=== PATIENT | male | born 1945 | race Caucasian/White ===

== ENCOUNTER 2019-12-12 10:31 | Observation (INO) | payer MEDICARE, BC ==
[~2019-12-12] VITALS: Ht 175.3 cm; Wt 70.3 kg
[2019-12-12] MEDS ORDERED: LACTATED RINGERS 1,000 ML IV SCH (11:34)
[2019-12-12] MEDS ORDERED: CHLORHEXIDINE 15 ML UDC MM STA (11:34)
[2019-12-12] MEDS ORDERED: CHLORHEXIDINE 15 ML UDC ONE (11:36)
[2019-12-12] MEDS ORDERED: SERT25TA3 PO (11:59)
[2019-12-12] MEDS ORDERED: OMEP-110 PO (11:59)
[2019-12-12] MEDS ORDERED: MAGN400T9 PO (11:59)
[2019-12-12] MEDS ORDERED: CHOL10003 PO (11:59)
[2019-12-12] MEDS ORDERED: ALBU6.7H8 IH (11:59)
[2019-12-12] MEDS ORDERED: ASCO-90 PO (11:59)
[2019-12-12] MEDS ORDERED: GLIM2TAB PO (11:59)
[2019-12-12] MEDS ORDERED: METF500T17 PO (11:59)
[2019-12-12] MEDS ORDERED: AMLO-150 PO (11:59)
[2019-12-12] MEDS ORDERED: HYDR50TA99 PO (11:59)
[2019-12-12] MEDS ORDERED: DIVA250T4 PO (11:59)
[2019-12-12] MEDS ORDERED: APIX5TAB PO (11:59)
[2019-12-12] MEDS ORDERED: LEVO750T6 PO (11:59)
[2019-12-12] MEDS ORDERED: ACET-2065 PO (11:59)
[2019-12-12] MEDS ORDERED: ROSU40TA PO (11:59)
[2019-12-12] MEDS ORDERED: TAMS-11 PO (11:59)
[2019-12-12] MEDS ORDERED: BISA10SU54 PR (11:59)
[2019-12-12] MEDS ORDERED: FERR324T5 PO (11:59)
[2019-12-12] MEDS ORDERED: FENTANYL PF 100 MCG/2ML ONE (12:16)
[2019-12-12] MEDS ORDERED: LIDOCAINE PF 2%, 5ML ONE (12:16)
[2019-12-12] MEDS ORDERED: DEXAMETHASONE 4 MG/ML, 1ML ONE (12:54)
[2019-12-12] MEDS ORDERED: PROPOFOL 10 MG/ML, 20ML ONE (12:54)
[2019-12-12] MEDS ORDERED: CEFAZOLIN 1,000 MG ONE (12:54)
[2019-12-12] MEDS ORDERED: ONDANSETRON 2MG/ML, 2ML ONE (12:54)
[2019-12-12] MEDS ORDERED: PROMETHAZINE 25 MG SUPP PR PRN (13:00)
[2019-12-12] MEDS ORDERED: OXYcodone 5 MG/5 ML ORAL.SOL UDC PO PRN (13:00)
[2019-12-12] MEDS ORDERED: PROMETHAZINE 25 MG/ML, 1ML IVPush PRN (13:00)
[2019-12-12] MEDS ORDERED: FENTANYL PF 100 MCG/2ML IV PRN (13:00)
[2019-12-12] MEDS ORDERED: ACETAMINOPHEN 325 MG TABLET PO PRN ×2 (13:00→14:30)
[2019-12-12] MEDS ORDERED: ONDANSETRON 2MG/ML, 2ML IVPush PRN (13:00)
[2019-12-12] MEDS ORDERED: HYDROmorphone 1 MG/ML, 1ML INJ IVPush PRN (13:00)
[2019-12-12] MEDS ORDERED: HYDROcodone/APAP 5/325 TABLET PO PRN (13:00)
[2019-12-12] MEDS ORDERED: hydrOXyzine 50MG TABLET PO PRN (15:00)
[2019-12-12] MEDS ORDERED: metFORMIN 500 MG TABLET PO SCH (17:00)
[2019-12-12] MEDS: metFORMIN 500 MG TABLET PO SCH (17:17)
[2019-12-12 18:20] VITALS: BP 113/71
[2019-12-12] MEDS: FERROUS SULFATE 325 MG TABLET PO SCH (20:45)
[2019-12-12] MEDS: ATORVASTATIN 80 MG TABLET PO SCH (20:45)
[2019-12-12] MEDS: DIVALPROEX 250 MG TAB.ER.24H PO SCH (20:45)
[2019-12-12] MEDS: ALBUTEROL HFA 90 MCG/SPRAY INH SCH (22:00)
[2019-12-12 23:10] VITALS: BP 123/59
[2019-12-13] MEDS: ALBUTEROL HFA 90 MCG/SPRAY INH SCH ×4 (02:56→20:10)
[2019-12-13 03:30] VITALS: BP 117/71
[2019-12-13] MEDS: OMEPRAZOLE 20 MG CAPSULE.DR PO SCH (05:05)
[2019-12-13 07:55] VITALS: BP 130/72
[2019-12-13] MEDS ORDERED: metFORMIN 500 MG TABLET PO SCH (08:00)
[2019-12-13] MEDS: BISACODYL 10 MG SUPP PR SCH (08:49)
[2019-12-13] MEDS: MAGNESIUM OXIDE 400 MG TABLET PO SCH (09:00)
[2019-12-13] MEDS: FERROUS SULFATE 325 MG TABLET PO SCH ×2 (09:00→21:16)
[2019-12-13] MEDS: CHOLECALCIFEROL 1,000 UNIT TABLET PO SCH (09:00)
[2019-12-13] MEDS: ASCORBIC ACID 500 MG TABLET PO SCH (09:00)
[2019-12-13] MEDS ORDERED: ONDANSETRON 2MG/ML, 2ML ONE (09:07)
[2019-12-13] MEDS: SERTRALINE 50MG TABLET PO SCH (09:10)
[2019-12-13] MEDS: AMLODIPINE 10 MG TAB PO SCH (09:10)
[2019-12-13] MEDS: LEVOFLOXACIN 750 MG TABLET PO SCH (09:11)
[2019-12-13] MEDS: metFORMIN 500 MG TABLET PO SCH ×2 (09:11→17:34)
[2019-12-13] MEDS: TAMSULOSIN 0.4 MG CAP.ER.24H PO SCH (09:11)
[2019-12-13] MEDS: GLIMEPIRIDE 1 MG TABLET PO SCH (09:11)
[2019-12-13] MEDS ORDERED: ONDANSETRON 2MG/ML, 2ML IVPush PRN (09:30)
[2019-12-13] MEDS ORDERED: PROMETHAZINE 25 MG/ML, 1ML ONE (11:22)
[2019-12-13] MEDS ORDERED: PROMETHAZINE 25 MG/ML, 1ML IM PRN (11:30)
[2019-12-13 13:51] VITALS: BP 110/68
[2019-12-13 18:28] VITALS: BP 116/65
[2019-12-13] MEDS: ATORVASTATIN 80 MG TABLET PO SCH (21:15)
[2019-12-13] MEDS: APIXABAN 5 MG TABLET PO SCH (21:15)
[2019-12-13] MEDS: DIVALPROEX 250 MG TAB.ER.24H PO SCH (21:16)
[2019-12-14 00:38] VITALS: BP 130/70
[2019-12-14] MEDS: ALBUTEROL HFA 90 MCG/SPRAY INH SCH (03:00)
[2019-12-14 05:23] LABS: CREATININE 0.78 mg/dL (0.7-1.3)
[2019-12-14] MEDS: OMEPRAZOLE 20 MG CAPSULE.DR PO SCH (06:41)
[2019-12-14 07:26] VITALS: BP 134/76
[2019-12-14] MEDS: GLIMEPIRIDE 1 MG TABLET PO SCH (08:01)
[2019-12-14] MEDS: FERROUS SULFATE 325 MG TABLET PO SCH (08:01)
[2019-12-14] MEDS: LEVOFLOXACIN 750 MG TABLET PO SCH (08:01)
[2019-12-14] MEDS: CHOLECALCIFEROL 1,000 UNIT TABLET PO SCH (08:01)
[2019-12-14] MEDS: metFORMIN 500 MG TABLET PO SCH (08:02)
[2019-12-14] MEDS: BISACODYL 10 MG SUPP PR SCH (08:02)
[2019-12-14] MEDS: AMLODIPINE 10 MG TAB PO SCH (08:02)
[2019-12-14] MEDS: ASCORBIC ACID 500 MG TABLET PO SCH (08:02)
[2019-12-14] MEDS: TAMSULOSIN 0.4 MG CAP.ER.24H PO SCH (08:02)
[2019-12-14] MEDS: MAGNESIUM OXIDE 400 MG TABLET PO SCH (08:02)
[2019-12-14] MEDS: SERTRALINE 50MG TABLET PO SCH (08:02)
[2019-12-14] MEDS: APIXABAN 5 MG TABLET PO SCH (08:02)
[2019-12-14 12:49] VITALS: BP 114/72
[2019-12-14 15:22] VITALS: BP 110/69
== END 2019-12-14 17:05 ==
LOC: OUT 10:31 → ORIP 12:58 → 4NE 14:07
PROVIDERS: ADMIT Urology; ATTEND Urology
DX: N40.1 Benign prostatic hyperplasia with lower urinary tract symptoms (principal); Z20.828 Contact with and (suspected) exposure to other viral communicable diseases; R33.8 Other retention of urine; N21.0 Calculus in bladder; I48.91 Unspecified atrial fibrillation; I10 Essential (primary) hypertension; E11.9 Type 2 diabetes mellitus without complications; Z79.899 Other long term (current) drug therapy; Z87.891 Personal history of nicotine dependence; Z86.73 Personal history of transient ischemic attack (TIA), and cerebral infarction without residual deficits
CPT/HCPCS: 36415; 52318; 52601; 82360; 82565; 82962; 87635; 88300; 88305; 94640; 96372; 96374; G0378; J0690; J1100; J2405; J2550; J2704; J3010; J7120